=== PATIENT | female | born 1990 | race Caucasian/White ===

== ENCOUNTER 2020-04-28 14:37 | Emergency (ER) | payer SELFPAY ==
[2020-04-28 14:38] VITALS: BP 99/75; PULSE 123; RESP 18; TEMP 36.1; O2SAT 99; BMI 28.6
--- NOTE | 2020-04-28 14:56 | ED.VIS.GEN ---
History of Present Illness Chief Complaint: Nausea/Vomiting Informant: Patient Onset: Weeks - 1 week Context: Gradual Onset Current Severity: Moderate Maximum Severity: Moderate Narrative: Patient presents with upper abdominal pain along with nausea and vomiting for the past 1 week. Sunday of last week she states she took 30 tabs of ibuprofen and a 12-hour time period. She was having some dental pain and trying to control the pain. She denies it this was an attempt to hurt herself. The next day she developed upper abdominal pain along with nausea and vomiting. She continues to have those symptoms. She denies diarrhea. She is had no blood in her vomitus. Past Medical History - Allergies and Home Meds Allergies/Adverse Reactions: Allergies No Known Allergies Allergy (Verified 04/28/20 14:38) Primary Care Physician: NOT,DEFINED [NON-STAFF] - Past Medical History: None Surgical History: - - Lives: With Family Review of Systems General: Denies: Chills, Fever Eyes: Denies: Visual changes - bilaterally ENT: Denies: Bilateral ear pain Cardiovascular: Denies: Chest pain Respiratory: Denies: Dyspnea, Cough Gastrointestinal: Reports: Abdominal pain, Nausea, Vomiting. Denies: Diarrhea Genitourinary: Denies: Dysuria Musculoskeletal: Denies: Swelling, Extremity Pain Skin: Denies: Rash Neurological: Denies: Headache Hematologic: Denies: Easy bruising, Easy bleeding Allergy: Denies: Uticaria Physical Exam Vital Signs/Narrative: Vital Signs Temp Pulse Resp BP Pulse Ox 04/28/20 14:38 97 F L 123 H 18 99/75 99 Inital Vital Signs reviewed: Yes General: Well nourished, Well developed Head: Normocephalic ENT: Moist mucous membranes Neck: Supple Cardiovascular: Tachycardia Respiratory: No distress, CTA bilaterally Abdomen: Soft, Tender - Upper abdominal tenderness to palpation., Hypoactive bowel sounds. Negative for: Guarding, Rebound tenderness Extremities: Nontender Skin: Normal color Neurological: Alert, Oriented x3 Psychological: Normal affect Diagnostic/Tx/Re-eval Laboratory Results 04/28/20 04/28/20 04/28/20 15:15 15:15 15:15 WBC 9.7 RBC 4.90 Hgb 13.1 Hct 39.1 MCV 79.8 L MCH 26.7 L MCHC 33.5 RDW Std Deviation 43.2 RDW Coeff of Saira 15.0 H Plt Count 244 MPV 11.7 Immature Gran % (Auto) 0.500 Neut % (Auto) 74.3 H Lymph % (Auto) 16.3 L Millard % (Auto) 8.6 Eos % (Auto) 0.1 Baso % (Auto) 0.2 Absolute Neuts (auto) 7.2 Absolute Lymphs (auto) 1.59 Nucleated RBC % 0 Sodium 133 L Potassium 2.2 L* Chloride 92 L Carbon Dioxide 27.0 Anion Gap 14 BUN 15 Creatinine 0.94 Estim Creat Clear Calc 79.46 Est GFR (MDRD) Af Amer 90 Est GFR (MDRD) Non-Af 74 BUN/Creatinine Ratio 15.9 Glucose 107 H Calcium 8.9 Total Bilirubin 0.40 Direct Bilirubin 0.16 AST 12 L ALT 14 Alkaline Phosphatase 77 Total Protein 7.6 Albumin 3.9 Globulin 3.7 Lipase 129 Serum , Qual NEGATIVE - Medical Decision Making Patient is ordered 2 L of IV fluid along with a dose of Zofran and Protonix. On repeat evaluation she reports improvement in her nausea and burning sensation in her abdomen. Potassium does return low at 2.2. She is placed on water service supervisor and 60 mEq p.o. is ordered. Patient will be observed for the next couple of hours on water service supervisor. She will be given an additional 40 mEq prior to discharge. She will be written for potassium replacement along with Zofran and Prilosec. ED Disposition - Plan for ED Patient: Disposition: Home or Assisted Living Diagnosis: Gastritis, Vomiting, Hypokalemia Instructions: ED Nausea Vomiting Adult, Hypokalemia Prescriptions: Potassium Chloride [K-Dur] 20 meq PO BID #10 tab Transmission Status: Pending to [facility]/pharmacy #[id number] Omeprazole [Prilosec] 20 mg PO DAILY #30 cap Transmission Status: Pending to [facility]/pharmacy #[id number] Ondansetron [Zofran Odt] 4 mg PO Q8H PRN PRN #10 tab PRN Reason: Nausea Transmission Status: Pending to [facility]/pharmacy #[id number] Referrals: Maynor Choi MD [STAFF PHYSICIAN] - 5-7 Days
[2020-04-28] MEDS: Ondansetron 4 MG/2 ML Vial IV (15:12)
[2020-04-28] MEDS: 0.9% Normal Saline 1,000 ML 1000 ML IV ×2 (15:14→16:45)
[2020-04-28 15:27] LABS: Absolute Lymphocyte Count 1.59 X10^3/uL (0.83-4.51); Absolute Neutrophil Count 7.2 X10^3/uL (2.0-7.7); Basophil# 0.02 X10^3/uL; Basophil% 0.2 % (0-1); Eosinophil# 0.01 X10^3/uL; Eosinophils% 0.1 % (0-5); Hematocrit 39.1 % (37-47); Hemoglobin 13.1 g/dL (12.0-15.0); Lymphocyte # 1.59 X10^3/ul (4.0); Lymphocyte % 16.3 % (19-41); Mean Corp Hgb Conc 33.5 g/dL (32-36); Mean Corpuscular Hgb 26.7 pg (27.0-32.0); Mean Corpuscular Volume 79.8 fL (81-99); Mean Platelet Vol. 11.7 fl (6.2-12.0); Monocyte# 0.84 X10^3/uL; Monocyte% 8.6 % (0-10); NRBC Flagged by Analyzer 0 % (0-5); Neutrophil # 7.22 X10^3/uL (2.7-7.7); Neutrophil % 74.3 % (47-70); Platelet Count 244 K/mm3 (150-450); RBC Distribution Width SD 43.2 fl (35.1-43.9); White Blood Count 9.7 K/mm3 (4.4-11.0)
[2020-04-28 15:48] LABS: Internal QC Validated? YES +Cl - CLEAR BKGD
[2020-04-28 15:49] LABS: Pregnancy, Serum, hCG Quali. NEGATIVE Negative
[2020-04-28 15:58] LABS: AST(SGOT) 12 U/L (15-37); Alanine Aminotransfer ALT/SGPT 14 U/L (13-56); Albumin, Serum 3.9 g/dL (3.2-5.0); Alkaline Phosphatase 77 U/L (45-117); Anion Gap 14 (5-15); BUN 15 mg/dL (7-18); BUN/Creat Ratio 15.9 RATIO (10-20); Bilirubin, Direct 0.16 mg/dL (0.00-0.30); Calcium,Total 8.9 mg/dL (8.5-10.1); Chloride 92 mmol/L (98-107); Creatinine, Serum 0.94 mg/dL (0.55-1.02); EST Glomerular Filtration Rate 74 mL/min (>60); Est Glom Filt Rate - Afr Amer 90 mL/min (>60); Estimated Creatinine Clearance 79.46 ml/min; Globulin 3.7 g/dL (2.2-4.2); Glucose 107 mg/dL (74-106); Lipase 129 U/L (73-393); Potassium 2.2 mmol/L (3.5-5.1); Protein, Total 7.6 g/dL (6.4-8.2); Sodium Level 133 mmol/L (136-145)
[2020-04-28 17:48] VITALS: PULSE 89; RESP 15; O2SAT 97
[2020-04-28 19:23] VITALS: BP 114/71; PULSE 112; RESP 18; O2SAT 18
[2020-04-28] MEDS: Ondansetron ODT 4 MG Tablet PO (19:26)
== END 2020-04-28 19:27 | disposition home or self-care (01) ==
PROVIDERS: Emergency Provider Emergency Medicine
DX: K29.70 Gastritis, unspecified, without bleeding (principal); E87.6 Hypokalemia
CPT/HCPCS: 80048; 80076; 83690; 84703; 85025; 96361; 96365; 96375; 99285; J2405

== ENCOUNTER 2020-04-30 12:09 | Emergency (ER) | payer SELFPAY ==
[2020-04-30 12:11] VITALS: BP 129/86; PULSE 113; RESP 18; TEMP 36.6; O2SAT 99; BMI 28.6
--- NOTE | 2020-04-30 12:43 | EKG12_ITS ---
Test Reason : DYSRHYTHMIA Blood Pressure : / mmHG Vent. Rate : 079 BPM Atrial Rate : 079 BPM P-R Int : 124 ms QRS Dur : 090 ms QT Int : 402 ms P-R-T Axes : -05 065 046 degrees QTc Int : 460 ms Normal sinus rhythm Normal ECG Confirmed by AUBREE SCHMITZ, DARRYN ([id number]), assistant film editor TYELR PARISI ([id number]) on 05/04/2020 10:49:49 AM Referred By: JAYSHREE Confirmed By:DARRYN MAK MD
[2020-04-30 13:09] LABS: Absolute Lymphocyte Count 1.54 X10^3/uL (0.83-4.51); Absolute Neutrophil Count 6.2 X10^3/uL (2.0-7.7); Basophil# 0.03 X10^3/uL; Basophil% 0.4 % (0-1); Eosinophil# 0.03 X10^3/uL; Eosinophils% 0.4 % (0-5); Hematocrit 36.4 % (37-47); Hemoglobin 11.9 g/dL (12.0-15.0); Lymphocyte # 1.54 X10^3/ul (4.0); Lymphocyte % 18.5 % (19-41); Mean Corp Hgb Conc 32.7 g/dL (32-36); Mean Corpuscular Hgb 26.8 pg (27.0-32.0); Mean Platelet Vol. 12.2 fl (6.2-12.0); Monocyte# 0.56 X10^3/uL; Monocyte% 6.7 % (0-10); NRBC Flagged by Analyzer 0 % (0-5); Neutrophil # 6.15 X10^3/uL (2.7-7.7); Neutrophil % 73.8 % (47-70); Platelet Count 221 K/mm3 (150-450); RBC Distribution Width CV 15.3 % (11.6-14.6); RBC Distribution Width SD 44.9 fl (35.1-43.9); Red Blood Count 4.44 M/mm3 (4.2-5.4); White Blood Count 8.3 K/mm3 (4.4-11.0)
[2020-04-30] MEDS: 0.9% Normal Saline 1,000 ML 1000 ML IV (13:12)
[2020-04-30] MEDS: Ondansetron 4 MG/2 ML Vial IV ×2 (13:13→14:02)
[2020-04-30] MEDS: Ketorolac 15 MG/ML Vial IV (13:15)
[2020-04-30 13:16] LABS: Internal QC Validated? YES +Cl - CLEAR BKGD; Pregnancy, Serum, hCG Quali. NEGATIVE Negative
[2020-04-30] MEDS: hydrOXYzine PAM 25 MG Capsule 50 MG PO (13:40)
[2020-04-30 13:46] LABS: AST(SGOT) 14 U/L (15-37); Alanine Aminotransfer ALT/SGPT 16 U/L (13-56); Albumin, Serum 3.6 g/dL (3.2-5.0); Alkaline Phosphatase 70 U/L (45-117); Anion Gap 7 (5-15); BUN 6 mg/dL (7-18); BUN/Creat Ratio 7.5 RATIO (10-20); Calcium,Total 8.9 mg/dL (8.5-10.1); Chloride 99 mmol/L (98-107); EST Glomerular Filtration Rate 90 mL/min (>60); Est Glom Filt Rate - Afr Amer 109 mL/min (>60); Estimated Creatinine Clearance 93.37 ml/min; Globulin 3.5 g/dL (2.2-4.2); Glucose 110 mg/dL (74-106); Lipase 166 U/L (73-393); Potassium 2.7 mmol/L (3.5-5.1); Protein, Total 7.1 g/dL (6.4-8.2); Sodium Level 134 mmol/L (136-145)
[2020-04-30 13:51] LABS: Bacteria 0 SEEN /hpf (None Seen); Mucous, Urine 0 SEEN /hpf (<or=2+); Red Blood Cells-Urine 0 SEEN /hpf (0-5); White Blood Cells 0 SEEN /hpf (0-5)
[2020-04-30 13:58] LABS: Color, Urine Yellow (Yellow); Glucose, Dipstick Normal (Normal); Ketone-Dipstick Negative (Negative); Leukocyte Esterase-Dipstick Negative /ul (Negative); Nitrite-Dipstick Negative (Negative); Occult Blood-Urine Negative /ul (Negative); Protein-Dipstick Negative (Negative); Urine Bilirubin Dipstick Negative (Negative); Urine Clarity Sl. Cloudy (Clear); Urine Urobilinogen Normal (Normal)
[2020-04-30 14:06] LABS: Magnesium 1.8 mg/dL (1.6-2.6)
[2020-04-30 14:08] LABS: Squamous Epithelial Cells - UA 0-5 SEEN /hpf (5-10)
--- NOTE | 2020-04-30 14:17 | CT_ITS ---
STUDY: CT ABDOMEN AND PELVIS WITHOUT CONTRAST REASON FOR EXAM: Female, 29 years old. EPIGASTRIC PAIN, N/V X 8 DAYS, NO OTHER MED HX RADIATION DOSAGE (If Supplied By Facility): CTDIvol = ( 12.92 ) mGy, DLP = ( 617.49 ) mGycm TECHNIQUE: Transaxial images were obtained from the dome of the diaphragm to the symphysis pubis without oral contrast, and without intravenous contrast. Sagittal and coronal images were reconstructed. Individualized dose optimization techniques were used for this CT. COMPARISON: None. FINDINGS: The visualized lung bases are unremarkable. The visualized portions of the heart are within normal limits. Normal liver. Normal gallbladder and extrahepatic biliary system. Normal spleen. Normal pancreas. Normal bilateral adrenal glands. Normal right kidney. Normal left kidney. There is a small hiatal hernia. Normal small intestine. Normal colon. The appendix is visualized and appears normal. Normal abdominal aorta. Normal inferior vena cava. There is borderline retroperitoneal lymphadenopathy with enlarged nodes no greater than 10mm in the short axis diameter. Normal urinary bladder. Follicles are seen in both ovaries. A dominant follicle measuring 1.7 cm x 1.7 cm is seen in the left ovary. The left ovary measures 3.3 cm x 2.2 cm. Normal abdominal wall. Normal osseous structures. CT/Abdomen/Pelvis without Cont IMPRESSION: Bilateral ovarian follicles more prominent on the left side with mild enlargement of the left ovary. Small hiatal hernia. Electronically Signed: Merlin Lopez, at 15:20 EDT , Service support ,
--- NOTE | 2020-04-30 14:22 | ED.VISSUMM ---
- ER Visit Summary Date of Service: 04/30/20 Chief Complaint: Abdominal pain and vomiting History of Present Illness: The patient is a 29 F with no primary care physician. She reports that she has abdominal pain began 8 days ago. It is a dull pressure that is diffuse. States that it began in the epigastric region. Is 10 of 10 at worst and 7-10 currently. Is worsened by laying on her right side. Is relieved by nothing. She is been nausea and vomited approximately 10 times per day. No blood in her emesis. She had diarrhea once a day for the past 2 days. No blood in her stools or black tarry stools. No dysuria frequency. Last menstrual period was last week. No vaginal bleeding or discharge. Patient denies sick contacts. Has not been camping out of the country. No possible bad food exposure. Does not drink well water. No recent antibiotic use. Patient complains of a mild headache and generalized weakness. Physical Examination: Vitals: 98.6, 139/86, 113, 18, 90% room air not hypoxic. General: Well-nourished and well-developed. Head: Normocephalic atraumatic. Neck: Supple, no lymphadenopathy. No JVD. Nontender. Cardiovascular: Regular rate and rhythm. No murmurs. Respiratory: No respiratory distress. Clear to auscultation bilaterally. Abdominal: Soft, moderate diffuse tenderness to palpation, nondistended, normal bowel sounds. No guarding, rebound, or peritoneal signs. Back: Nontender. Extremities: Nontender, no edema. Skin: Normal color, no rash. Neurologic: Alert and oriented ?3. Cranial nerves II through XII are intact. Normal strength and sensation. Psych: Anxious. Test Results: EKG is sinus at 79 with a QTC of 460. Chem-7 shows a potassium of 2.7, sodium 134, glucose 110, BUN of 6. Magnesium is 1.8. UA is normal. test is negative. CBC shows an H&H 11.9 36.4, segmented for 74, no sites of 19. Clinical Impression(s) from Imaging Studies Abdomen/Pelvis CT 04/30/20 14:17 IMPRESSION: Bilateral ovarian follicles more prominent on the left side with mild enlargement of the left ovary. Small hiatal hernia. Electronically Signed: Merlin Lopez, at 15:20 EDT , Service support , Emergency Department Course and Treatment: Patient had an IV placed. She was given a liter of normal saline. She was given Zofran, Toradol IV. She continued to vomit. She is given a second dose of Zofran IV. She continued to vomit. She was given Reglan and Benadryl IV. She was given magnesium IV. She was given Vistaril and K-Dur p.o. She is resting more comfortably. Treatment Plan: Patient will be discharged with magnesium, K-Dur, Reglan, Vistaril and Prozac. Instructed to follow-up with the [facility] in 3 days for another exam. She is also instructed to follow-up with the counseling center. Return to the emergency department for any worsening symptoms. Disposition: To home in improved and stable condition. Impression: 1. Abdominal pain. 2. Vomiting. 3. Hypokalemia. 4. Anxiety. This note was generated with [employer] dictation software. It may contain incorrect words, spelling, and punctuation that were not noted in review of the chart prior to signing ED Disposition - Plan for ED Patient: Instructions: ED Nausea Vomiting Adult, Eating a High Potassium Diet Prescriptions: Potassium Chloride [K-Dur] 40 meq PO BID #20 tablet Magnesium Oxide [Mag-Oxide] 200 mg PO TID #30 tablet Fluoxetine [Prozac] 20 mg PO DAILY #30 capsule Metoclopramide [Reglan] 10 mg PO 4X/DAY PRN #20 tablet PRN Reason: Headache hydrOXYzine pamoate capsule [Vistaril] 50 mg PO TID PRN PRN #30 capsule PRN Reason: Anxiety Referrals: Dorene Tamayo [NON-STAFF] - 3-5 Days
[2020-04-30] MEDS: Metoclopramide 10 MG/2 ML Vial IV (14:35)
[2020-04-30] MEDS: DiphenhydrAMINE 50 MG/ML Syringe 25 MG IV (14:37)
[2020-04-30 14:39] VITALS: BP 123/87; PULSE 86; RESP 16; O2SAT 95
[2020-04-30 17:20] VITALS: BP 120/76; PULSE 80; RESP 16; O2SAT 99
== END 2020-04-30 17:21 | disposition home or self-care (01) ==
PROVIDERS: Emergency Provider Emergency Medicine
DX: R10.84 Generalized abdominal pain (principal); R11.2 Nausea with vomiting, unspecified; E87.6 Hypokalemia; F41.9 Anxiety disorder, unspecified
CPT/HCPCS: 74176; 80053; 81001; 83690; 83735; 84703; 85025; 93005; 96361; 96365; 96366; 96375; 96376; 99285; J7030; J7050; A4216; J2405

== ENCOUNTER 2020-08-23 08:16 | Emergency (ER) | payer SELFPAY ==
[2020-08-23 08:17] VITALS: BP 120/77; PULSE 131; RESP 16; TEMP 36.3; O2SAT 99; BMI 27.4
[2020-08-23 08:58] LABS: Absolute Lymphocyte Count 2.36 X10^3/uL (0.83-4.51); Absolute Neutrophil Count 9.2 X10^3/uL (2.0-7.7); Basophil# 0.04 X10^3/uL; Basophil% 0.3 % (0-1); Eosinophil# 0.01 X10^3/uL; Eosinophils% 0.1 % (0-5); Hematocrit 40.5 % (37-47); Hemoglobin 13.1 g/dL (12.0-15.0); Lymphocyte # 2.36 X10^3/ul (4.0); Lymphocyte % 18.6 % (19-41); Mean Corp Hgb Conc 32.3 g/dL (32-36); Mean Corpuscular Hgb 25.2 pg (27.0-32.0); Mean Corpuscular Volume 77.9 fL (81-99); Mean Platelet Vol. 11.4 fl (6.2-12.0); Monocyte# 1.06 X10^3/uL; Monocyte% 8.4 % (0-10); NRBC Flagged by Analyzer 0 % (0-5); Neutrophil # 9.15 X10^3/uL (2.7-7.7); Neutrophil % 72.2 % (47-70); Platelet Count 262 K/mm3 (150-450); RBC Distribution Width CV 14.4 % (11.6-14.6); RBC Distribution Width SD 39.8 fl (35.1-43.9); White Blood Count 12.7 K/mm3 (4.4-11.0)
[2020-08-23] MEDS: proMETHazine 25 MG/ML Syringe 6.25 MG IV (08:58)
[2020-08-23] MEDS: 0.9% Normal Saline 1,000 ML 1000 ML IV (08:58)
[2020-08-23 09:16] LABS: AST(SGOT) 9 U/L (15-37); Alanine Aminotransfer ALT/SGPT 13 U/L (13-56); Albumin, Serum 3.9 g/dL (3.2-5.0); Alkaline Phosphatase 83 U/L (45-117); Anion Gap 7 (5-15); BUN 10 mg/dL (7-18); BUN/Creat Ratio 9.3 RATIO (10-20); Calcium,Total 9.1 mg/dL (8.5-10.1); Chloride 99 mmol/L (98-107); Creatinine, Serum 1.07 mg/dL (0.55-1.02); EST Glomerular Filtration Rate 64 mL/min (>60); Est Glom Filt Rate - Afr Amer 77 mL/min (>60); Estimated Creatinine Clearance 69.18 ml/min; Globulin 3.9 g/dL (2.2-4.2); Glucose 128 mg/dL (74-106); Lipase 216 U/L (73-393); Potassium 2.8 mmol/L (3.5-5.1); Protein, Total 7.8 g/dL (6.4-8.2); Sodium Level 133 mmol/L (136-145)
[2020-08-23 10:10] LABS: Bacteria 0 SEEN /hpf (None Seen); Mucous, Urine 0 SEEN /hpf (<or=2+)
[2020-08-23 10:28] LABS: Magnesium 2.3 mg/dL (1.6-2.6)
[2020-08-23 10:31] LABS: Color, Urine Red (Yellow); Glucose, Dipstick Normal (Normal); Ketone-Dipstick 5 mg/dl (Negative); Leukocyte Esterase-Dipstick 100 /ul (Negative); Nitrite-Dipstick Negative (Negative); Occult Blood-Urine 250 /ul (Negative); Protein-Dipstick 100 mg/dl (Negative); Urine Bilirubin Dipstick Negative (Negative); Urine Clarity Cloudy (Clear); Urine Urobilinogen Normal (Normal)
[2020-08-23 10:41] LABS: Internal QC Validated? YES +Cl - CLEAR BKGD; Pregnancy, Urine Negative Negative
[2020-08-23 10:42] LABS: Red Blood Cells-Urine > 100 SEEN /hpf (0-5); Squamous Epithelial Cells - UA 0-5 SEEN /hpf (5-10); White Blood Cells 0-5 SEEN /hpf (0-5)
--- NOTE | 2020-08-23 11:39 | ED.VIS.GEN ---
History of Present Illness Chief Complaint: Abd Pain Informant: Patient Narrative: 30-year-old female with past medical history of cyclic vomiting disorder as well as GERD presents with concern for vomiting and inability to keep down solids or liquids for the past 4 to 5 days. States that she has had some abdominal cramping. Denies any fever, chills, vaginal bleeding or discharge, urinary symptoms. Patient has been taking Zofran at home without relief. Is also complaining of right ear pain which is been present for the past 3 to 4 days. Denies any headache, neck pain, vision change. Past Medical History - Allergies and Home Meds Allergies/Adverse Reactions: Allergies No Known Allergies Allergy (Verified 08/23/20 08:17) Primary Care Physician: Care Physician,No Primary [Primary Care Provider] - Prior records reviewed: Yes Past Medical History: - - cyclic vomiting. gerd. Surgical History: no surgical history, - - Lives: With Family Smoking Status: Never smoker Alcohol: None Drugs: None Review of Systems General: Denies: Chills, Fever, Sweats Eyes: Denies: Visual changes - bilaterally, Diplopia ENT: Reports: Right ear pain. Denies: Rhinorrhea, Sore throat Cardiovascular: Denies: Chest pain, Palpitations Respiratory: Denies: Dyspnea, Cough, Dyspnea on exertion Gastrointestinal: Reports: Abdominal pain, Nausea, Vomiting. Denies: Diarrhea, Melena, Hematochezia Genitourinary: Denies: Dysuria, Hematuria, Frequency Musculoskeletal: Denies: Back pain, Extremity Pain Skin: Denies: Rash, Wounds Neurological: Denies: Headache, Weakness, Numbness Physical Exam Vital Signs/Narrative: Vital Signs Temp Pulse Resp BP Pulse Ox 08/23/20 08:17 97.4 F L 131 H 16 120/77 99 General: Well nourished, Well developed, No Acute Distress Head: Normocephalic, Atraumatic Eyes: Perrl, EOMI ENT: Moist mucous membranes, No rhinorrhea, - - Right otitis externa with debris in the external canal. Neck: Supple, Nontender Cardiovascular: Regular rate, No murmurs, Tachycardia Respiratory: No distress, CTA bilaterally, Chest nontender Abdomen: Soft, Nontender, Nondistended, Normal bowel sounds Back: Nontender, Normal Inspection Extremities: Nontender, No edema Skin: Normal color, No rash Neurological: Alert, Oriented x3, Cranial nerves II-XII grossly intact, Normal Strength, Normal Sensation Psychological: Normal affect, Normal Mood Diagnostic/Tx/Re-eval Laboratory Data 08/23/20 08/23/20 08/23/20 08:27 08:27 08:27 WBC 12.7 H RBC 5.20 Hgb 13.1 Hct 40.5 MCV 77.9 L MCH 25.2 L MCHC 32.3 RDW Std Deviation 39.8 RDW Coeff of Saira 14.4 Plt Count 262 MPV 11.4 Immature Gran % (Auto) 0.400 Neut % (Auto) 72.2 H Lymph % (Auto) 18.6 L Sutter % (Auto) 8.4 Eos % (Auto) 0.1 Baso % (Auto) 0.3 Absolute Neuts (auto) 9.2 H Absolute Lymphs (auto) 2.36 Nucleated RBC % 0 Sodium 133 L Potassium 2.8 L Chloride 99 Carbon Dioxide 27.0 Anion Gap 7 BUN 10 Creatinine 1.07 H Estim Creat Clear Calc 69.18 Est GFR (MDRD) Af Amer 77 Est GFR (MDRD) Non-Af 64 BUN/Creatinine Ratio 9.3 L Glucose 128 H Calcium 9.1 Magnesium 2.3 Total Bilirubin 0.50 AST 9 L ALT 13 Alkaline Phosphatase 83 Total Protein 7.8 Albumin 3.9 Globulin 3.9 Albumin/Globulin Ratio 1.0 Lipase 216 Urine Color Urine Clarity Urine pH Ur Specific [place] Urine Protein Urine Glucose (UA) Urine Ketones Urine Occult Blood Urine Nitrite Urine Bilirubin Urine Urobilinogen Ur Leukocyte Esterase Urine RBC Urine WBC Ur Squamous Epith Cells Urine Bacteria Urine Mucus Urine Test 08/23/20 08/23/20 09:50 09:50 WBC RBC Hgb Hct MCV MCH MCHC RDW Std Deviation RDW Coeff of Saira Plt Count MPV Immature Gran % (Auto) Neut % (Auto) Lymph % (Auto) Sutter % (Auto) Eos % (Auto) Baso % (Auto) Absolute Neuts (auto) Absolute Lymphs (auto) Nucleated RBC % Sodium Potassium Chloride Carbon Dioxide Anion Gap BUN Creatinine Estim Creat Clear Calc Est GFR (MDRD) Af Amer Est GFR (MDRD) Non-Af BUN/Creatinine Ratio Glucose Calcium Magnesium Total Bilirubin AST ALT Alkaline Phosphatase Total Protein Albumin Globulin Albumin/Globulin Ratio Lipase Urine Color Red Urine Clarity Cloudy Urine pH 7.0 Ur Specific [place] 1.010 Urine Protein 100 H Urine Glucose (UA) Normal Urine Ketones 5 H Urine Occult Blood 250 H Urine Nitrite Negative Urine Bilirubin Negative Urine Urobilinogen Normal Ur Leukocyte Esterase 100 H Urine RBC > 100 SEEN Urine WBC 0-5 SEEN Ur Squamous Epith Cells 0-5 SEEN Urine Bacteria 0 SEEN Urine Mucus 0 SEEN Urine Test Negative - Medical Decision Making Appears well nontoxic. Tachycardic upon arrival. Benign abdominal exam. Patient given 1 L of normal saline. Patient has evidence of otitis externa which will be treated with otic Cipro. Patient was also given Phenergan which did resolve her nausea. Found to have potassium of 2.8 which will be replaced p.o. and IV. Patient will be given Toradol for ear pain. Given Phenergan for home. Asked to follow-up with primary care. Impression: 1. Cyclic vomiting syndrome 2. Hypokalemia 3. Right otitis externa ED Disposition - Plan for ED Patient: Disposition: Home or Assisted Living Instructions: ED Nausea Vomiting Adult Prescriptions: Ciprofloxacin/Hydrocortisone [Cipro Hc Otic Suspension] 0.25 ml OT BID 7 Days #10 mls Prescription Printed proMETHazine tablet [Phenergan] 25 mg PO Q6H PRN PRN #10 tab PRN Reason: Nausea Prescription Printed Potassium Chloride 20 meq PO DAILY 5 Days #5 tab.er.[email or web address] Prescription Printed Referrals: Pranay Turcios MD [NON-STAFF] - 3-5 Days Mandeep Pelaez MD [STAFF PHYSICIAN] - 5-7 Days
--- NOTE | 2020-08-23 15:00 | CM.ED ---
Social Work Consult: No PCP Informant: Self Referral Met with patient in room. Introduced self and social work assistant role. Patient agreeable to speaking with this social work assistant. Patient confirming to not have a PCP. This social work assistant also noting that patient does not have insurance. Patient confirms to not have insurance as well. Patient reports to work full-time at [employer] and to have 30 days until patient will receive benefits. Patient reports to have completed HCAP form on last visit in April 2020. This social work assistant educating patient that another HCAP form will need to be completed for this month as information might change, patient voicing understanding to this and plans to complete HCAP form. This social work assistant able to provide patient with HCAP form to complete, patient instructed to return form to registration when patient leaves. Patient voicing understanding to plan. Patient reports to not currently qualify for medicaid and is unable to afford insurance through the market place. Patient reports to live at home with spouse and 7 year old daughter. Patient states to not have a PCP due to not having insurance. Patient voicing plan to set up PCP when patient has insurance. Patient reports to have housing and transportation. Patient denies any community needs. Active support and listening provided throughout conversation. Mary Hubbard MSW, SOFIA
[2020-08-23 15:01] VITALS: BP 145/76; PULSE 84; RESP 15; O2SAT 96
--- NOTE | 2020-08-23 15:37 | ED.RN ---
pt called out and reports that feels 80% better and that iv hurting so asking if can just take it out and go home dr. inocencia vilchis'd med and pt ok to go
== END 2020-08-23 15:38 | disposition home or self-care (01) ==
PROVIDERS: Emergency Provider Emergency Medicine
DX: R11.15 Cyclical vomiting syndrome unrelated to migraine (principal); H60.91 Unspecified otitis externa, right ear; E87.6 Hypokalemia; K21.9 Gastro-esophageal reflux disease without esophagitis
CPT/HCPCS: 80053; 81001; 81025; 83690; 83735; 85025; 90471; 96361; 96365; 96366; 96375; 99282; 99284; J7030; J7040; A4216

== ENCOUNTER 2020-11-10 09:43 | Emergency (ER) | payer SELFPAY ==
[2020-11-10 09:44] VITALS: BP 132/86; PULSE 112; RESP 16; TEMP 36.3; O2SAT 99; BMI 29.9
--- NOTE | 2020-11-10 10:03 | ED.DCSUM_ITS ---
- ER Visit Summary Date of Service: 11/10/20 Chief Complaint: Abdominal pain, nausea and vomiting History of Present Illness: The patient is a 30 F who presents with abdominal pain, nausea vomiting. She has had this for 5 days. She has had sharp epigastric pain that does not radiate. Nothing seems to make it better or worse. She has had nausea with multiple episodes of vomiting. She was given Zofran which does not help. She was at [facility] on Sunday, 2 days ago. She apparently had a negative work-up and was discharged home. She states that she gets episodes like this every couple of months. She denies having a fever. Physical Examination: Vital signs reviewed. HEENT exam unremarkable. Heart is regular rate and rhythm without murmurs. Lungs are clear to auscultation. Abdomen is soft with diffuse tenderness. There is no guarding or rebound tenderness. Extremities reveal no edema. Skin exam normal. Neurologic exam normal. Test Results: Sodium 135, potassium 2.7. Glucose 113. CBC and liver enzymes normal. Urinalysis has no infection Emergency Department Course and Treatment: Patient was given Bentyl and Phenergan as well as normal saline. She is feeling better. The patient was se en at [facility] on 11/06 and had low potassium. She was seen at [facility] on 11/08 and had low potassium. The rest of her imaging studies and laboratory studies at that time were normal. I read in both of those dictations that she admitted to marijuana usage daily. This likely may be causing her symptoms. I recommended ceasing marijuana use. I will give her Phenergan, Bentyl and potassium replacement for home. She will follow-up with her PCP Treatment Plan: [] Disposition: Discharge Impression: Nausea and vomiting, hypokalemia This note was generated with [employer] dictation software. It may contain incorrect words, spelling, and punctuation that were not noted in review of the chart prior to signing ED Disposition - Plan for ED Patient: Disposition: Home or Assisted Living Instructions: ED Vomiting (Adult) Prescriptions: Dicyclomine HCl [Bentyl] 20 mg PO TIDAC #20 cap Prescription Printed proMETHazine tablet [Phenergan] 25 mg PO Q6H PRN PRN #20 tab PRN Reason: Nausea Prescription Printed Potassium Chloride 20 meq PO DAILY #10 tab.er.prt Prescription Printed Referrals: Care Physician,No Primary [Primary Care Provider] -
[2020-11-10] MEDS: 0.9% Normal Saline 1,000 ML 1000 ML IV (10:09)
[2020-11-10] MEDS: proMETHazine 25 MG/ML Syringe 12.5 MG IV (10:10)
[2020-11-10] MEDS: Dicyclomine 20 MG/2 ML Vial IM (10:11)
[2020-11-10 10:38] LABS: ALB/GLOB Ratio 1.1 RATIO (0.9-2.4); AST(SGOT) 5 U/L (15-37); Alanine Aminotransfer ALT/SGPT 12 U/L (13-56); Alkaline Phosphatase 78 U/L (45-117); Anion Gap 9 (5-15); BUN 18 mg/dL (7-18); BUN/Creat Ratio 19.3 RATIO (10-20); Chloride 96 mmol/L (98-107); Creatinine, Serum 0.93 mg/dL (0.55-1.02); EST Glomerular Filtration Rate 75 mL/min (>60); Est Glom Filt Rate - Afr Amer 91 mL/min (>60); Estimated Creatinine Clearance 79.59 ml/min; Globulin 3.7 g/dL (2.2-4.2); Glucose 113 mg/dL (74-106); Lipase 88 U/L (73-393); Potassium 2.7 mmol/L (3.5-5.1); Protein, Total 7.7 g/dL (6.4-8.2); Sodium Level 135 mmol/L (136-145)
[2020-11-10 10:54] LABS: Absolute Lymphocyte Count 2.61 X10^3/uL (0.83-4.51); Basophil# 0.03 X10^3/uL; Basophil% 0.3 % (0-1); Hematocrit 37.9 % (37-47); Lymphocyte # 2.61 X10^3/ul (4.0); Lymphocyte % 24.7 % (19-41); Mean Corp Hgb Conc 31.7 g/dL (32-36); Mean Corpuscular Hgb 25.2 pg (27.0-32.0); Mean Corpuscular Volume 79.5 fL (81-99); Mean Platelet Vol. 11.8 fl (6.2-12.0); Monocyte# 0.89 X10^3/uL; Monocyte% 8.4 % (0-10); NRBC Flagged by Analyzer 0 % (0-5); Neutrophil # 6.98 X10^3/uL (2.7-7.7); Neutrophil % 66.2 % (47-70); Platelet Count 254 K/mm3 (150-450); RBC Distribution Width CV 18.5 % (11.6-14.6); RBC Distribution Width SD 47.3 fl (35.1-43.9); Red Blood Count 4.77 M/mm3 (4.2-5.4); White Blood Count 10.6 K/mm3 (4.4-11.0)
[2020-11-10 11:21] LABS: Mucous, Urine 0 SEEN /hpf (<or=2+); Red Blood Cells-Urine 0 SEEN /hpf (0-5)
[2020-11-10 11:25] LABS: Color, Urine Straw (Yellow); Glucose, Dipstick Normal (Normal); Internal QC Validated? YES +Cl - CLEAR BKGD; Ketone-Dipstick 15 mg/dl (Negative); Leukocyte Esterase-Dipstick 100 /ul (Negative); Nitrite-Dipstick Negative (Negative); Occult Blood-Urine Negative /ul (Negative); Protein-Dipstick Negative (Negative); Urine Bilirubin Dipstick Negative (Negative); Urine Clarity Sl. Cloudy (Clear); Urine Urobilinogen Normal (Normal)
[2020-11-10 11:27] LABS: Pregnancy, Urine Negative Negative
[2020-11-10 11:31] LABS: Amorphous Sediment 2+; Bacteria 1+ /hpf (None Seen); Squamous Epithelial Cells - UA 0-5 SEEN /hpf (5-10); White Blood Cells 0-5 SEEN /hpf (0-5)
== END 2020-11-10 12:15 | disposition home or self-care (01) ==
LOC: ED 11:49
PROVIDERS: Emergency Provider Emergency Medicine
DX: E87.6 Hypokalemia (principal); R11.2 Nausea with vomiting, unspecified
CPT/HCPCS: 80053; 81001; 81025; 83690; 85025; 96361; 96372; 96374; 99284; J7030; A4216

== ENCOUNTER 2021-02-10 14:00 | Emergency (ER) | payer OTHER, SELFPAY ==
[2021-02-10 14:01] VITALS: BP 124/85; PULSE 94; RESP 18; TEMP 36.4; O2SAT 97; BMI 28.3
[2021-02-10 14:19] VITALS: BP 124/85; PULSE 94; RESP 18; TEMP 36.4; O2SAT 97
[2021-02-10] MEDS: Ondansetron 4 MG/2 ML Vial IV (14:34)
[2021-02-10] MEDS: 0.9% Normal Saline 1,000 ML 999 ML IV (14:34)
[2021-02-10 14:39] LABS: Absolute Lymphocyte Count 1.91 X10^3/uL (0.83-4.51); Absolute Neutrophil Count 7.9 X10^3/uL (2.0-7.7); Basophil# 0.03 X10^3/uL; Basophil% 0.3 % (0-1); Hematocrit 36.2 % (37-47); Hemoglobin 11.4 g/dL (12.0-15.0); Lymphocyte # 1.91 X10^3/ul (4.0); Lymphocyte % 17.6 % (19-41); Mean Corp Hgb Conc 31.5 g/dL (32-36); Mean Corpuscular Hgb 24.2 pg (27.0-32.0); Mean Corpuscular Volume 76.7 fL (81-99); Mean Platelet Vol. 10.8 fl (6.2-12.0); Monocyte# 0.98 X10^3/uL; NRBC Flagged by Analyzer 0 % (0-5); Neutrophil # 7.93 X10^3/uL (2.7-7.7); Neutrophil % 72.9 % (47-70); Platelet Count 211 K/mm3 (150-450); RBC Distribution Width CV 16.8 % (11.6-14.6); RBC Distribution Width SD 46.5 fl (35.1-43.9); Red Blood Count 4.72 M/mm3 (4.2-5.4); White Blood Count 10.9 K/mm3 (4.4-11.0)
--- NOTE | 2021-02-10 14:43 | ED.VIS.GEN ---
History of Present Illness Chief Complaint: Nausea/Vomiting Informant: Patient Narrative: Patient is a 30-year-old previously healthy female who presents to the emergency department for nausea/vomiting and diarrhea. Her symptoms have been present over the past 3 days. She states that she vomits anytime she eats something. She has thrown up some yellow bile. No known sick contacts. No known Covid exposures. She denies any cough, shortness of breath. Her diarrhea has since resolved. She does take Zofran at home which has not been giving her significant relief. She has diffuse abdominal pain that she rates as a 6 out of 10. She tried taking Pepto for this. No one spot hurts in another. Only previous abdominal surgery was for tubal ligation. She does have a known hiatal hernia. She denies any urinary symptoms. She states this seems to happen to her every few months or so. Nobody else around her has the same symptoms. No recent antibiotic use. Past Medical History - Allergies and Home Meds Allergies/Adverse Reactions: Allergies No Known Allergies Allergy (Verified 02/10/21 14:03) Primary Care Physician: Niko Crook MD [Primary Care Provider] - 3-5 Days if not improving Prior records reviewed: Yes Surgical History: no surgical history, - - Smoking Status: Former smoker Review of Systems All systems negative except as indicated General: Denies: Chills, Fever, Sweats Eyes: Denies: Visual changes - bilaterally, Diplopia ENT: Denies: Rhinorrhea, Sore throat Cardiovascular: Denies: Chest pain, Palpitations Respiratory: Denies: Dyspnea, Cough, Dyspnea on exertion Gastrointestinal: Reports: Abdominal pain, Nausea, Vomiting. Denies: Diarrhea, Melena, Hematochezia Genitourinary: Denies: Dysuria, Hematuria, Frequency Musculoskeletal: Denies: Back pain, Extremity Pain Skin: Denies: Rash, Wounds Neurological: Denies: Headache, Weakness, Numbness Physical Exam Vital Signs/Narrative: Vital Signs Temp Pulse Resp BP Pulse Ox 02/10/21 14:19 97.6 F L 94 18 124/85 H 97 02/10/21 14:01 97.6 F L 94 18 124/85 H 97 Inital Vital Signs reviewed: Yes General: Well nourished, Well developed, No Acute Distress Head: Normocephalic, Atraumatic Eyes: Perrl, EOMI ENT: No rhinorrhea Neck: Supple, Nontender Cardiovascular: Regular rate, Regular rhythm, No murmurs Respiratory: No distress, CTA bilaterally, Chest nontender Abdomen: Soft, Nondistended, Normal bowel sounds, Tender - Diffuse, no one spot hurts worse than another Back: Nontender, Normal Inspection Extremities: Nontender, No edema Skin: Normal color, No rash Neurological: Alert, Oriented x3, Cranial nerves II-XII grossly intact, Normal Strength, Normal Sensation Psychological: Normal affect, Normal Mood Diagnostic/Tx/Re-eval - Medical Decision Making Patient presents to the emergency department for nausea/vomiting. She did previously have diarrhea with this which has since resolved. Upon arrival to the emergency department vital signs within normal limits. She is in no acute distress. Will check basic lab work to evaluate electrolyte status. She is given IV fluids and a dose of IV Zofran. Patient found to be hypokalemic which she states is chronic for her. She is on therapy as an outpatient for this. Patient is feeling much better after treatment and is requesting to be discharged. We will write a prescription for Phenergan. She is to follow-up with her PCP. Return precautions are reviewed with her including inability to keep down fluids, developing fever. She understands and is agreeable this plan. Discharged home in stable condition. All questions answered. ED Disposition - Plan for ED Patient: Disposition: Home or Assisted Living Diagnosis: Nausea and vomiting Instructions: ED Vomiting (Adult) Prescriptions: proMETHazine tablet [Phenergan] 25 mg PO Q6H PRN PRN #10 tab PRN Reason: Nausea Transmission Status: Received by [facility]/pharmacy #[id number] Referrals: Niko Crook MD [Primary Care Provider] - 3-5 Days if not improving
[2021-02-10 14:51] LABS: Anion Gap 7 (5-15); BUN 20 mg/dL (7-18); BUN/Creat Ratio 23.7 RATIO (10-20); Calcium,Total 9.1 mg/dL (8.5-10.1); Chloride 99 mmol/L (98-107); Creatinine, Serum 0.84 mg/dL (0.55-1.02); EST Glomerular Filtration Rate 84 mL/min (>60); Est Glom Filt Rate - Afr Amer 102 mL/min (>60); Estimated Creatinine Clearance 88.12 ml/min; Glucose 128 mg/dL (74-106); Sodium Level 131 mmol/L (136-145)
[2021-02-10 14:56] LABS: Mucous, Urine 0 SEEN /hpf (<or=2+)
[2021-02-10 14:59] LABS: Color, Urine Yellow (Yellow); Glucose, Dipstick Normal (Normal); Ketone-Dipstick 5 mg/dl (Negative); Leukocyte Esterase-Dipstick 100 /ul (Negative); Nitrite-Dipstick Negative (Negative); Occult Blood-Urine 25 /ul (Negative); Protein-Dipstick 15 mg/dl (Negative); Urine Bilirubin Dipstick Negative (Negative); Urine Clarity Sl. Cloudy (Clear); Urine Urobilinogen 1 mg/dl (Normal)
[2021-02-10 15:05] LABS: Squamous Epithelial Cells - UA 5-10 SEEN /hpf (5-10)
[2021-02-10 15:06] LABS: Bacteria 1+ /hpf (None Seen); Red Blood Cells-Urine 0-5 SEEN /hpf (0-5); White Blood Cells 5-10 SEEN /hpf (0-5)
[2021-02-10 15:07] LABS: Internal QC Validated? YES +Cl - CLEAR BKGD; Pregnancy, Urine Negative Negative
[2021-02-10] MEDS: Potassium Chloride Oral Soln 20 MEQ/15 ML UDC 40 MEQ PO (16:06)
[2021-02-10 16:09] VITALS: BP 151/100; PULSE 84; RESP 16; O2SAT 100
== END 2021-02-10 16:11 | disposition home or self-care (01) ==
PROVIDERS: Emergency Provider Emergency Medicine; PCP Family Medicine
DX: R11.2 Nausea with vomiting, unspecified (principal); Z87.891 Personal history of nicotine dependence
CPT/HCPCS: 80048; 81001; 81025; 85025; 96361; 96374; 99283; J7030; A4216; J2405

== ENCOUNTER 2021-11-28 23:56 | Emergency (ER) | payer OTHER, SELFPAY ==
[2021-11-28 23:57] VITALS: BP 113/98; PULSE 122; RESP 18; TEMP 37; O2SAT 98; BMI 27.6
--- NOTE | 2021-11-29 00:18 | EX.ED.DYSGE1 ---
HPI History of Present Illness Chief Complaint: Nausea/Vomiting/Diarrhea Informant: patient Narrative Narrative: Patient presents with nausea vomiting diarrhea that is been going on for almost a week. She states she used to have this problem frequently. Her gallbladder was taken out in February and she had not had symptoms like this until now. She also has some epigastric area discomfort that she describes as burning. No lower abdominal pain. She does have continual sour acid taste in her mouth. She used to be on proton pump inhibitors but stopped them about 3 to 4 weeks ago. She states she had been feeling fine so she did not think she needed them anymore. She has had no fevers chills. No cough or congestion. She just had a negative COVID test about 2 days ago. No fevers or chills. No urinary symptoms. Her last menstrual cycle is now and is normal timing. No back or flank pain. Nothing specifically makes her symptoms better. Trying to eat or drink does make the vomiting worse. PFSH PFSH Home Medications Potassium Chloride 20 meq PO DAILY #10 tab.er.prt 11/10/20 [Rx Last Taken Unknown] dicyclomine 20 mg PO TIDAC #20 cap 11/10/20 [Rx Last Taken Unknown] potassium chloride 20 meq PO DAILY 11/10/20 [History Last Taken Unknown] promethazine 25 mg PO Q6H PRN PRN #20 tab 11/10/20 [Rx Last Taken Unknown] promethazine 25 mg PO Q6H PRN PRN #10 tab 02/10/21 [Rx Last Taken Unknown] ondansetron 4 mg PO Q8H PRN #10 tab 11/29/21 [Rx Last Taken Unknown] potassium chloride 20 meq PO BID #20 tab 11/29/21 [Rx Last Taken Unknown] Allergy/AdvReac Type Severity Reaction Status Date / Time No Known Allergies Allergy Verified 11/28/21 23:59 Surgical History (Updated 11/29/21 @ 00:33 by Rosmery Flores) History of cholecystectomy Social History Smoking Status: Former smoker ROS ROS ED Constitutional Constitutional ED: Denies chills or fever(s) Eyes Eyes: Denies blurry vision ENT ENT ED: Denies rhinorrhea or sore throat Cardiovascular Cardiovascular: Denies chest pain or palpitations Respiratory/Chest Respiratory/Chest: Denies cough, dyspnea or sputum Gastrointestinal Gastrointestinal: Reports abdominal pain, diarrhea, nausea and vomiting; Denies constipation or melena Genitourinary Genitourinary ED: Denies dysuria or hematuria Musculoskeletal Musculoskeletal: Denies myalgias Integumentary Denies rash Neurologic Neurologic: Denies headache(s) Psychiatric Psychiatric: Denies anxiety or depression Endocrine Endocrinology: Denies polydipsia or polyuria Allergic/Immunologic Allergic/Immunologic ED: Denies mouth swelling or urticaria EXAM Physical Exam Const Vital Signs: 11/28/21 23:57 11/29/21 01:56 Temperature 98.6 F Temperature Source Temporal Pulse Rate 122 H 88 Respiratory Rate 18 16 Blood Pressure 113/98 H 120/78 Blood Pressure Mean 103 92 Pulse Ox 98 100 Oxygen Delivery Method Room Air Room Air Positive well nourished and well developed General Appearance ED: well developed and NAD HEENT Reports dry mucous membranes Negative for trauma or tenderness Mouth ED: Yes dry mucous membranes Mouth: dry mucous membranes Eyes General Eye ED: Negative for pale conjunctiva or scleral icterus Neck no JVD Resp normal respiratory effort and clear to auscultation bilaterally Effort and Inspection: Negative for pain with movement Auscultation: Negative for rales, rhonchi or wheezes Cardio regular rhythm and no murmurs Rate: tachycardic GI normal to inspection, nondistended, normoactive bowel sounds and non-distended GI Narrative: Mild epigastric tenderness without any guarding or rebound. Auscultation: normoactive bowel sounds Palpation: soft Back/Spine no CVA tenderness Extremity normal to inspection Neuro Sensorium / Orientation: alert; Negative for lethargic or stuporous Psych mental status grossly normal Skin no rashes or lesions noted MDM MDM MDM Narrative Medical decision making narrative: Patient's blood work showed minimal elevation of her white count. Electrolytes showed potassium low at 2.4. We are going to give her both IV and p.o. However she did not want IV potassium. We will continue with the p.o. at this time. We then got back the full set of electrolytes and liver function test. Her glucose is very high at 710. Remainder of liver function test are normal. Urine does show a few ketones. However, her electrolytes do not show elevated anion gap or decreased bicarb. I do not think this is DKA. Patient has no history of prior diabetes although both her mother and father do have it. I talked to the patient about staying in the hospital to correct the hydration, nausea, low potassium and high sugar. She does not think that she is going to be able to stay. She is going to call her to talk to him to see if we can work something out. Patient has contacted her . They have talked about it. Patient states she cannot stay. Her needs the car and she has children at home that need to be taken care of today. There are off school. There is no one to watch them. I explained to the patient that I think the best route of medical care would be to stay in the hospital to get her hydration status fully up, make sure she is eating, get her blood sugars down and teach her about diabetes and use of medicines. But she cannot do this. She does want to leave AMA. I still will get her on metformin initially. I explained that I cannot tell if she is a type II diabetic or JIMMY type I diabetic. If she is type I, she will not respond to the oral meds. We also discussed with her about decreasing carbohydrates and substituting more fat and proteins to keep her blood sugars down. If she gets lightheaded, weak, fevers, vomiting or any symptoms she is welcome to return at any time. We ended up rechecking her glucose was all the way down into the 70s. Patient still wide awake and alert. This is not consistent with the amount of fluids and insulin given. We contacted the lab. Evidently when they first checked her glucose it was 115 but somehow it was amended and found to be 710. I did talk with the nurse who shyanne the blood. The IV was placed and the blood was drawn. There were no IV fluids of any kind given prior to the blood draw. We have rechecked electrolytes. Her glucose is 87. This is slightly higher than 1 we had checked as a fingerstick. Potassium is still low. However, patient states her potassium is always low. She is not having symptoms of this. She does not want IV potassium. We will get her oral potassium and a prescription. I will not get her meds for diabetes as I think our initial blood sugar was a lab error and not factual. I explained all the events to the patient. I was able to send off further labs such as hemoglobin A1c. I also sent off a C-peptide. Her physician will follow-up with these. I explained to her that these were drawn and the information should be available over the next days or week. All questions were answered. Lab Data Attestation: I reviewed the patient's lab results. Labs: Laboratory Results - last 24 hr 11/29/21 11/29/21 11/29/21 00:30 00:30 01:05 WBC 11.5 H RBC 5.08 Hgb 13.9 Hct 39.6 MCV 78.0 L MCH 27.4 MCHC 35.1 RDW Std Deviation 39.6 RDW Coeff of Saira 14.3 Plt Count 235 MPV 11.2 Immature Gran % (Auto) 0.300 Neut % (Auto) 70.0 Lymph % (Auto) 20.6 [place] % (Auto) 8.8 Eos % (Auto) 0.2 Baso % (Auto) 0.1 Absolute Neuts (auto) 8.0 H Absolute Lymphs (auto) 2.36 Nucleated RBC % 0 Sodium 131 L Potassium 2.4 L* Chloride 91 L Carbon Dioxide 28.0 Anion Gap 12 BUN 16 Creatinine 1.03 H Estim Creat Clear Calc 71.21 Est GFR (MDRD) Af Amer 80 Est GFR (MDRD) Non-Af 66 BUN/Creatinine Ratio 15.5 Glucose 710 H* Calcium 9.3 Total Bilirubin 0.40 AST 13 L ALT 26 Alkaline Phosphatase 84 Total Protein 7.9 Albumin 3.9 Globulin 4.0 Albumin/Globulin Ratio 1.0 Lipase 153 Urine Color Yellow Urine Clarity Sl. Cloudy Urine pH 6.0 Ur Specific [place] 1.020 Urine Protein 30 H Urine Glucose (UA) Normal Urine Ketones 5 H Urine Occult Blood 250 H Urine Nitrite Negative Urine Bilirubin Negative Urine Urobilinogen Normal Ur Leukocyte Esterase 25 H Urine RBC 50-100 SEEN Urine WBC 5-10 SEEN Ur Squamous Epith Cells 0-5 SEEN Amorphous Sediment 1+ Urine Bacteria 2+ Urine Mucus 0 SEEN Urine Test Negative POC Glucose 11/29/21 11/29/21 11/29/21 02:33 02:40 02:59 WBC RBC Hgb Hct MCV MCH MCHC RDW Std Deviation RDW Coeff of Saira Plt Count MPV Immature Gran % (Auto) Neut % (Auto) Lymph % (Auto) [place] % (Auto) Eos % (Auto) Baso % (Auto) Absolute Neuts (auto) Absolute Lymphs (auto) Nucleated RBC % Sodium 135 L Potassium 2.4 L* Chloride 98 Carbon Dioxide 29.0 Anion Gap 8 BUN 14 Creatinine 0.77 Estim Creat Clear Calc 95.26 Est GFR (MDRD) Af Amer 112 Est GFR (MDRD) Non-Af 93 BUN/Creatinine Ratio 18.1 Glucose 87 Calcium 7.7 L Total Bilirubin AST ALT Alkaline Phosphatase Total Protein Albumin Globulin Albumin/Globulin Ratio Lipase Urine Color Urine Clarity Urine pH Ur Specific [place] Urine Protein Urine Glucose (UA) Urine Ketones Urine Occult Blood Urine Nitrite Urine Bilirubin Urine Urobilinogen Ur Leukocyte Esterase Urine RBC Urine WBC Ur Squamous Epith Cells Amorphous Sediment Urine Bacteria Urine Mucus Urine Test POC Glucose 76 73 Discharge Plan Triage Chief Complaint: Nausea/Vomiting/Diarrhea ED Provider: Julio César Goins Dx/Rx/DC Orders Clinical Impression: Nausea & vomiting, Acute hypokalemia, Acute dehydration Instructions: Diabetes Carbs Fats Protein, ED Diabetes- Overview Prescriptions: New potassium chloride 20 mEq tablet extended release 20 meq PO BID Qty: 20 RF: 0 ondansetron 4 mg tablet,disintegrating 4 mg PO Q8H PRN (Reason: nausea and vomiting) Qty: 10 RF: 0 No Action potassium chloride 20 MEQ tablet 20 meq PO DAILY RF: 0 promethazine 25 MG tablet 25 mg PO Q6H PRN PRN (Reason: Nausea) Qty: 20 RF: 0 dicyclomine 10 MG capsule 20 mg PO TIDAC Qty: 20 RF: 0 Potassium Chloride 20 MEQ Tab.Er.Prt 20 meq PO DAILY Qty: 10 RF: 0 promethazine 25 MG tablet 25 mg PO Q6H PRN PRN (Reason: Nausea) Qty: 10 RF: 0 Primary Care Provider: Niko Crook Referrals: Niko Crook MD [Primary Care Provider] - As soon as possible Disposition Disposition: Home, Self Care
[2021-11-29] MEDS: Ondansetron 4 MG/2 ML Vial IV (00:34)
[2021-11-29] MEDS: 0.9% Normal Saline 1,000 ML 1000 ML IV (00:34)
[2021-11-29 00:42] LABS: Absolute Lymphocyte Count 2.36 X10^3/uL (0.83-4.51); Basophil# 0.01 X10^3/uL; Basophil% 0.1 % (0-1); Eosinophil# 0.02 X10^3/uL; Eosinophils% 0.2 % (0-5); Hematocrit 39.6 % (37-47); Hemoglobin 13.9 g/dL (12.0-15.0); Lymphocyte # 2.36 X10^3/ul (0.83-4.51); Lymphocyte % 20.6 % (19-41); Mean Corp Hgb Conc 35.1 g/dL (32-36); Mean Corpuscular Hgb 27.4 pg (27.0-32.0); Mean Platelet Vol. 11.2 fl (6.2-12.0); Monocyte# 1.01 X10^3/uL; Monocyte% 8.8 % (0-10); NRBC Flagged by Analyzer 0 % (0-5); Neutrophil # 8.04 X10^3/uL (2.7-7.7); Platelet Count 235 K/mm3 (150-450); RBC Distribution Width CV 14.3 % (11.6-14.6); RBC Distribution Width SD 39.6 fl (35.1-43.9); Red Blood Count 5.08 M/mm3 (4.2-5.4); White Blood Count 11.5 K/mm3 (4.4-11.0)
[2021-11-29 01:05] LABS: AST(SGOT) 13 U/L (15-37); Alanine Aminotransfer ALT/SGPT 26 U/L (13-56); Albumin, Serum 3.9 g/dL (3.2-5.0); Alkaline Phosphatase 84 U/L (45-117); Anion Gap 12 (5-15); BUN 16 mg/dL (7-18); BUN/Creat Ratio 15.5 RATIO (10-20); Calcium,Total 9.3 mg/dL (8.5-10.1); Chloride 91 mmol/L (98-107); Creatinine, Serum 1.03 mg/dL (0.55-1.02); EST Glomerular Filtration Rate 66 mL/min (>60); Est Glom Filt Rate - Afr Amer 80 mL/min (>60); Estimated Creatinine Clearance 71.21 ml/min; Lipase 153 U/L (73-393); Potassium 2.4 mmol/L (3.5-5.1); Protein, Total 7.9 g/dL (6.4-8.2); Sodium Level 131 mmol/L (136-145)
[2021-11-29 01:12] LABS: Mucous, Urine 0 SEEN /hpf (<or=2+)
[2021-11-29 01:14] LABS: Color, Urine Yellow (Yellow); Glucose, Dipstick Normal (Normal); Ketone-Dipstick 5 mg/dl (Negative); Leukocyte Esterase-Dipstick 25 /ul (Negative); Nitrite-Dipstick Negative (Negative); Occult Blood-Urine 250 /ul (Negative); Protein-Dipstick 30 mg/dl (Negative); Urine Bilirubin Dipstick Negative (Negative); Urine Clarity Sl. Cloudy (Clear); Urine Urobilinogen Normal (Normal)
[2021-11-29] MEDS: Potassium Chloride Oral Tablet 20 MEQ 40 MEQ PO (01:29)
[2021-11-29 01:38] LABS: Glucose 710 mg/dL (74-106)
[2021-11-29 01:40] LABS: Bacteria 2+ /hpf (None Seen); Red Blood Cells-Urine 50-100 SEEN /hpf (0-5); Squamous Epithelial Cells - UA 0-5 SEEN /hpf (5-10); White Blood Cells 5-10 SEEN /hpf (0-5)
[2021-11-29 01:41] LABS: Amorphous Sediment 1+; Internal QC Validated? YES +Cl - CLEAR BKGD; Pregnancy, Urine Negative Negative
[2021-11-29 01:56] VITALS: BP 120/78; PULSE 88; RESP 16; O2SAT 100
[2021-11-29] MEDS: Insulin Lispro 100 UNIT/ML INSULN.PEN 12 UNIT SC (01:56)
[2021-11-29] MEDS: 0.9% Normal Saline 1,000 ML 999 ML IV (01:56)
[2021-11-29 02:46] LABS: Bedside Glucose 76 mg/dL (70-110)
[2021-11-29 03:05] LABS: Bedside Glucose 73 mg/dL (70-110)
[2021-11-29 03:32] LABS: Anion Gap 8 (5-15); BUN 14 mg/dL (7-18); BUN/Creat Ratio 18.1 RATIO (10-20); Calcium,Total 7.7 mg/dL (8.5-10.1); Chloride 98 mmol/L (98-107); Creatinine, Serum 0.77 mg/dL (0.55-1.02); EST Glomerular Filtration Rate 93 mL/min (>60); Est Glom Filt Rate - Afr Amer 112 mL/min (>60); Estimated Creatinine Clearance 95.26 ml/min; Glucose 87 mg/dL (74-106); Potassium 2.4 mmol/L (3.5-5.1); Sodium Level 135 mmol/L (136-145)
[2021-11-29 03:59] VITALS: RESP 16
[2021-11-29 04:01] LABS: Bedside Glucose 60 mg/dL (70-110)
[2021-11-29 04:41] LABS: Bedside Glucose 64 mg/dL (70-110)
[2021-11-29 08:24] LABS: Hemoglobin A1c 5.6 % (3.8-5.6)
[2021-11-30 12:47] LABS: C-Peptide 2.7 ng/mL (1.1-4.4)
== END 2021-11-29 04:44 | disposition home or self-care (01) ==
PROVIDERS: Emergency Provider Emergency Medicine; PCP Family Medicine; Visit Provider Emergency Medicine
DX: R11.2 Nausea with vomiting, unspecified (principal); E87.6 Hypokalemia; E86.0 Dehydration; Z90.49 Acquired absence of other specified parts of digestive tract; R19.7 Diarrhea, unspecified; Z87.891 Personal history of nicotine dependence; R10.13 Epigastric pain
CPT/HCPCS: 80048; 80053; 81001; 81025; 82962; 83036; 83690; 84681; 85025; 96361; 96365; 96375; 99284; J7030; J2405; J3490

== ENCOUNTER 2022-11-30 11:50 | Emergency (ER) | payer OTHER, SELFPAY ==
[2022-11-30 11:50] VITALS: BP 118/87; PULSE 67; RESP 18; TEMP 36.1; O2SAT 100; BMI 28.8
[2022-11-30] MEDS: Ondansetron 4 MG/2 ML Vial IV (12:11)
[2022-11-30] MEDS: 0.9% Normal Saline 1,000 ML 1000 ML IV (12:11)
[2022-11-30] MEDS: Morphine 4 MG/ML Syringe IV (12:12)
[2022-11-30 12:19] LABS: Absolute Lymphocyte Count 1.63 X10^3/uL (0.83-4.51); Absolute Neutrophil Count 7.3 X10^3/uL (2.0-7.7); Basophil# 0.01 X10^3/uL; Basophil% 0.1 % (0-1); Hematocrit 33.6 % (37-47); Hemoglobin 10.6 g/dL (12.0-15.0); Lymphocyte # 1.63 X10^3/ul (0.83-4.51); Lymphocyte % 16.8 % (19-41); Mean Corp Hgb Conc 31.5 g/dL (32-36); Mean Corpuscular Hgb 25.7 pg (27.0-32.0); Mean Corpuscular Volume 81.6 fL (81-99); Mean Platelet Vol. 11.9 fl (6.2-12.0); Monocyte# 0.73 X10^3/uL; Monocyte% 7.5 % (0-10); NRBC Flagged by Analyzer 0 % (0-5); Neutrophil # 7.29 X10^3/uL (2.7-7.7); Neutrophil % 75.2 % (47-70); Platelet Count 234 K/mm3 (150-450); RBC Distribution Width CV 16.4 % (11.6-14.6); RBC Distribution Width SD 48.7 fl (35.1-43.9); Red Blood Count 4.12 M/mm3 (4.2-5.4); White Blood Count 9.7 K/mm3 (4.4-11.0)
[2022-11-30 12:33] LABS: AST(SGOT) 14 U/L (15-37); Alanine Aminotransfer ALT/SGPT 21 U/L (13-56); Albumin, Serum 3.8 g/dL (3.2-5.0); Alkaline Phosphatase 69 U/L (45-117); Anion Gap 8 (5-15); BUN 23 mg/dL (7-18); BUN/Creat Ratio 23.8 RATIO (10-20); Chloride 110 mmol/L (98-107); Creatinine, Serum 0.97 mg/dL (0.55-1.02); EST Glomerular Filtration Rate 71 mL/min (>60); Est Glom Filt Rate - Afr Amer 86 mL/min (>60); Estimated Creatinine Clearance 74.92 ml/min; Globulin 3.7 g/dL (2.2-4.2); Glucose 129 mg/dL (74-106); Lipase 90 U/L (73-393); Potassium 3.2 mmol/L (3.5-5.1); Protein, Total 7.5 g/dL (6.4-8.2); Sodium Level 141 mmol/L (136-145)
[2022-11-30 12:47] LABS: Internal QC Validated? YES +Cl - CLEAR BKGD; Pregnancy, Serum, hCG Quali. NEGATIVE Negative
[2022-11-30 13:09] LABS: Bacteria 0 SEEN /hpf (None Seen); Mucous, Urine 0 SEEN /hpf (<or=2+); Red Blood Cells-Urine 0 SEEN /hpf (0-5); White Blood Cells 0 SEEN /hpf (0-5)
[2022-11-30 13:12] LABS: Color, Urine Yellow (Yellow); Glucose, Dipstick Normal (Normal); Ketone-Dipstick 50 mg/dl (Negative); Leukocyte Esterase-Dipstick Negative /ul (Negative); Nitrite-Dipstick Negative (Negative); Occult Blood-Urine 25 /ul (Negative); Protein-Dipstick Negative (Negative); Urine Bilirubin Dipstick Negative (Negative); Urine Clarity Clear (Clear); Urine Urobilinogen Normal (Normal)
[2022-11-30 13:21] LABS: Squamous Epithelial Cells - UA 0-5 SEEN /hpf (5-10)
[2022-11-30] MEDS: proMETHazine 25 MG/ML Syringe 6.25 MG IM (13:21)
--- NOTE | 2022-11-30 14:52 | EDS_ITS ---
HPI HPI - GI History of Present Illness Chief Complaint: Nausea/Vomiting/Diarrhea Informant: patient Abdominal Pain/Flank Pain Onset: Days (3) Context: Gradual Onset Timing: Continuous Quality: Burning Location: Diffuse Worsened by: - (Vomiting) Relieved by: Nothing Nausea/Vomiting/Emesis GI Symptom: Positive for Nausea and Vomiting Onset: Days (3) Quality: Positive for Nonbilious; Negative for Blood streaks, Coffee ground or Hematemesis Diarrhea/Melena/Hematochezia GI Symptom: Negative for Diarrhea, Melena or Hematochezia Associated Symptoms Associated Symptoms: Negative for Dysuria, Frequency or Hematuria Narrative Narrative: Patient presents with abdominal pain that has been constant for the past 3 days. Patient states it has gradually gotten worse. Patient describes her pain as burning. Patient patient states her pain is diffuse across her abdomen. Patient states it is worse whenever she vomits. Patient states she has been vomiting for the past 3 days. Patient states her vomiting began suddenly. Patient denies any hematemesis or coffee-ground emesis. Patient states she is unable to keep anything down. Patient denies any diarrhea, melena, or hematochezia. Patient states her last menstrual period was 2 weeks ago. Patie nt denies any dysuria, hematuria, or frequency. PFSH PFSH Medical History no medical history no medical history Home Medications Potassium Chloride 20 meq PO DAILY ##10 11/10/20 [Rx Last Taken Unknown] dicyclomine 10 mg capsule 20 mg PO TIDAC #20 caps 11/10/20 [Rx Last Taken Unknown] potassium chloride 20 mEq tablet,extended release(part/cryst) 20 meq PO DAILY 11/10/20 [History Last Taken Unknown] promethazine 25 mg tablet 25 mg PO Q6H PRN PRN Nausea #20 tabs 11/10/20 [Rx Last Taken Unknown] promethazine 25 mg tablet 25 mg PO Q6H PRN PRN Nausea #10 TABLETS 02/10/21 [Rx Last Taken Unknown] ondansetron 4 mg disintegrating tablet 4 mg PO Q8H PRN nausea and vomiting #10 tabs 11/29/21 [Rx Last Taken Unknown] potassium chloride 20 mEq tablet,extended release 20 meq PO BID #20 tabs 11/29/21 [Rx Last Taken Unknown] promethazine 25 mg rectal suppository (Promethegan) 25 mg RECTAL Q6H PRN PRN Nausea ##6 11/30/22 [Rx Last Taken Unknown] Allergy/AdvReac Type Severity Reaction Status Date / Time No Known Allergies Allergy Verified 11/30/22 11:50 Surgical History History of cholecystectomy Social History Smoking Status: Former smoker ROS ROS ED Constitutional Constitutional ED: Denies chills or fever(s) Eyes Eyes: Denies blurry vision or change in vision ENT ENT ED: Denies rhinorrhea or sore throat Cardiovascular Cardiovascular: Denies chest pain or palpitations Respiratory/Chest Respiratory/Chest: Denies cough or dyspnea Gastrointestinal Gastrointestinal: Reports abdominal pain, nausea and vomiting; Denies diarrhea or melena Genitourinary Genitourinary ED: Denies dysuria or hematuria Musculoskeletal Musculoskeletal: Reports back pain; Denies neck pain Integumentary Denies abscess or rash Neurologic Neurologic: Denies headache(s) or weakness Allergic/Immunologic Allergic/Immunologic ED: Denies mouth swelling or urticaria EXAM Physical Exam Const Vital Signs: 11/30/22 11:50 Temperature 96.9 F L Temperature Source Temporal Pulse Rate 67 Respiratory Rate 18 Blood Pressure 118/87 H Blood Pressure Mean 97 Pulse Ox 100 Oxygen Delivery Method Room Air Positive well nourished and well developed General Appearance ED: well developed HEENT Reports moist mucous membranes Neck supple and no JVD Resp normal respiratory effort and clear to auscultation bilaterally Cardio regular rate, regular rhythm and no murmurs GI normal to inspection, nondistended, normoactive bowel sounds Palpation: soft and tender epigastric, LLQ, RLQ, LUQ, RUQ, periumbilical and suprapubic; Negative for guarding or rebound tenderness present Extremity normal to inspection General Extremety ED: Negative for edema or tenderness General Extremity: Negative for edema Neuro oriented x3, CN's II-XII intact bilaterally and no sensory deficits noted Sensorium / Orientation: alert Motor Exam: strength 5/5 throughout Psych mental status grossly normal Skin no rashes or lesions noted MDM MDM MDM Narrative Medical decision making narrative: Patient was given IV fluids, morphine, and Zofran. Differential diagnosis includes viral gastroenteritis, gastritis, pancreatitis, inflammatory bowel disease, urinary tract infection, ectopic , or new onset diabetes. I do not feel this is a bowel obstruction since her abdomen is not distended and she is only mildly tender. Patient states the Zofran did not help much. Patient was given a dose of Phenergan IM. We will obtain a CBC to check for anemia and leukocytosis. Comprehensive metabolic profile will be obtained to check for electrolyte abnormalities, glucose, renal function, and hepatic function. Lipase will be obtained to assess for pancreatitis. Serum hCG will be obtained to assess for /ectopic . Urinalysis will be obta ined to check for urinary tract infection. Lab Data Attestation: I reviewed the patient's lab results. Lab results narrative: CBC was reviewed. There is a mild anemia with hemoglobin of 10.6 and hematocrit 33.6. Platelets were normal. Comprehensive metabolic profile was reviewed. Chloride was mildly elevated at 110. BUN was slightly elevated at 23. Creatinine was normal. Glucose was 129. Hepatic function was normal. Lipase was normal. Serum hCG was reviewed and was normal. Urinalysis was reviewed and was normal. Labs: Laboratory Results - last 24 hr 11/30/22 11/30/22 11/30/22 12:10 12:10 12:10 WBC 9.7 RBC 4.12 L Hgb 10.6 L Hct 33.6 L MCV 81.6 MCH 25.7 L MCHC 31.5 L RDW Std Deviation 48.7 H RDW Coeff of Saira 16.4 H Plt Count 234 MPV 11.9 Immature Gran % (Auto) 0.400 Neut % (Auto) 75.2 H Lymph % (Auto) 16.8 L [place] % (Auto) 7.5 Eos % (Auto) 0.0 Baso % (Auto) 0.1 Absolute Neuts (auto) 7.3 Absolute Lymphs (auto) 1.63 Nucleated RBC % 0 Sodium 141 Potassium 3.2 L Chloride 110 H Carbon Dioxide 23.0 Anion Gap 8 BUN 23 H Creatinine 0.97 Estim Creat Clear Calc 74.92 Est GFR (MDRD) Af Amer 86 Est GFR (MDRD) Non-Af 71 BUN/Creatinine Ratio 23.8 H Glucose 129 H Calcium 9.0 Total Bilirubin 0.40 AST 14 L ALT 21 Alkaline Phosphatase 69 Total Protein 7.5 Albumin 3.8 Globulin 3.7 Albumin/Globulin Ratio 1.0 Lipase 90 Serum , Qual NEGATIVE Urine Color Urine Clarity Urine pH Ur Specific [place] Urine Protein Urine Glucose (UA) Urine Ketones Urine Occult Blood Urine Nitrite Urine Bilirubin Urine Urobilinogen Ur Leukocyte Esterase Urine RBC Urine WBC Ur Squamous Epith Cells Urine Bacteria Urine Mucus 11/30/22 13:00 WBC RBC Hgb Hct MCV MCH MCHC RDW Std Deviation RDW Coeff of [place] Plt Count MPV Immature Gran % (Auto) Neut % (Auto) Lymph % (Auto) [place] % (Auto) Eos % (Auto) Baso % (Auto) Absolute Neuts (auto) Absolute Lymphs (auto) Nucleated RBC % Sodium Potassium Chloride Carbon Dioxide Anion Gap BUN Creatinine Estim Creat Clear Calc Est GFR (MDRD) Af Amer Est GFR (MDRD) Non-Af BUN/Creatinine Ratio Glucose Calcium Total Bilirubin AST ALT Alkaline Phosphatase Total Protein Albumin Globulin Albumin/Globulin Ratio Lipase Serum , Qual Urine Color Yellow Urine Clarity Clear Urine pH 6.0 Ur Specific [place] 1.020 Urine Protein Negative Urine Glucose (UA) Normal Urine Ketones 50 H Urine Occult Blood 25 H Urine Nitrite Negative Urine Bilirubin Negative Urine Urobilinogen Normal Ur Leukocyte Esterase Negative Urine RBC 0 SEEN Urine WBC 0 SEEN Ur Squamous Epith Cells 0-5 SEEN Urine Bacteria 0 SEEN Urine Mucus 0 SEEN Treatment and Re-Evaluation Narrative: Patient was feeling better after taking the Phenergan. Patient was given a dose of oral potassium for her hypokalemia of 3.2. Patient was given a prescription for Phenergan suppositories. Patient was instructed to start with small amounts of fluids more frequently. Patient was instructed to advance to a bland diet and then to a regular diet if she feels better. Patient was instructed to follow-up with her primary care physician in 5 to 7 days. Patient understood and was agreeable with the plan. All questions were answered. Discharge Plan Triage Chief Complaint: Nausea/Vomiting/Diarrhea ED Provider: Jos Csatro Dx/Rx/DC Orders Clinical Impression: Nausea and vomiting, Hypokalemia Instructions: ED Hypokalemia, ED Vomiting (Adult) Prescriptions: New promethazine [Promethegan] 25 mg suppository 25 mg RECTAL Q6H PRN PRN (Reason: Nausea) Qty: 6 0RF No Action potassium chloride 20 MEQ tablet 20 meq PO DAILY promethazine 25 MG tablet 25 mg PO Q6H PRN PRN (Reason: Nausea) Qty: 20 0RF dicyclomine 10 MG capsule 20 mg PO TIDAC Qty: 20 0RF Potassium Chloride 20 MEQ Tab.Er.Prt 20 meq PO DAILY Qty: 10 0RF promethazine 25 MG tablet 25 mg PO Q6H PRN PRN (Reason: Nausea) Qty: 10 0RF potassium chloride 20 mEq tablet extended release 20 meq PO BID Qty: 20 0RF ondansetron 4 mg tablet,disintegrating 4 mg PO Q8H PRN (Reason: nausea and vomiting) Qty: 10 0RF Primary Care Provider: Care Physician,No Primary Referrals: Care Physician,No Primary [Primary Care Provider] - Disposition Disposition: Home, Self Care
[2022-11-30] MEDS: Potassium Chloride Oral Tablet 20 MEQ 40 MEQ PO (15:14)
== END 2022-11-30 15:14 | disposition home or self-care (01) ==
PROVIDERS: Emergency Provider Emergency Medicine; Visit Provider Emergency Medicine
DX: R11.2 Nausea with vomiting, unspecified (principal); R10.9 Unspecified abdominal pain; E87.6 Hypokalemia; R19.7 Diarrhea, unspecified; Z87.891 Personal history of nicotine dependence
CPT/HCPCS: 80053; 81001; 83690; 84703; 85025; 96361; 96372; 96374; 96375; 99284; J7030; J2405